=== PATIENT | female | born 1985 | race Two or more races ===

== ENCOUNTER → 2022-09-28 | Outpatient (CLI) | payer OTHER | END | disposition home or self-care (01) | LOC: PRENATAL 15:37 | PROVIDERS: ATTEND Obstetrics & Gynecology Maternal & Fetal Medicine | DX: O35.3XX0 Maternal care for (suspected) damage to fetus from viral disease in mother, not applicable or unspecified (principal); O09.529 Supervision of elderly multigravida, unspecified trimester; O28.1 Abnormal biochemical finding on antenatal screening of mother; O34.10 Maternal care for benign tumor of corpus uteri, unspecified trimester; O34.40 Maternal care for other abnormalities of cervix, unspecified trimester; O44.00 Complete placenta previa NOS or without hemorrhage, unspecified trimester; Z3A.20 20 weeks gestation of pregnancy ==

== ENCOUNTER 2022-12-21 08:42 | Outpatient (CLI) | payer OTHER | END 2022-12-21 09:55 | disposition home or self-care (01) | LOC: PRENATAL 08:42 | PROVIDERS: ATTEND Obstetrics & Gynecology Maternal & Fetal Medicine | DX: O26.849 Uterine size-date discrepancy, unspecified trimester (principal); O36.8199 Decreased fetal movements, unspecified trimester, other fetus; O09.529 Supervision of elderly multigravida, unspecified trimester; O28.1 Abnormal biochemical finding on antenatal screening of mother; O34.10 Maternal care for benign tumor of corpus uteri, unspecified trimester; O34.40 Maternal care for other abnormalities of cervix, unspecified trimester; O44.00 Complete placenta previa NOS or without hemorrhage, unspecified trimester; Z3A.32 32 weeks gestation of pregnancy ==

== ENCOUNTER 2023-01-08 10:28 | Inpatient (IN) | payer OTHER ==
[~2023-01-08] VITALS: Ht 149.9 cm; Wt 73.9 kg
[2023-01-08 11:28] LABS: HEMATOCRIT 42.4 % (36.0-45.00); MEAN CELL VOLUME 92.3 fL (80.00-100.00); MEAN CORPUSCULAR HEMOGLOBIN 30.5 pg (27.00-32.0); PLATELET COUNT 206 K/uL (150-450); RED BLOOD COUNT 4.59 M/uL (4.00-6.00); RED CELL DISTRIBUTION WIDTH 13.3 % (11.5-14.5)
[2023-01-08 11:38] LABS: URINE APPEARANCE Clear; URINE BILIRRUBIN Negative (NEGATIVE); URINE BLOOD Negative; URINE COLOR Yellow; URINE GLUCOSE Negative (NEGATIVE); URINE LEUKOCYTE Trace; URINE NITRATE Negative; URINE UROBILINOGEN 0.2 E.U./dl
[2023-01-08 11:41] LABS: URINE BACTERIA 376.6 uL (0.0-1933); URINE RBC 5.1 uL (0.0-20.8); URINE WBC 41.1 uL (0.0-23.2)
[2023-01-08] MEDS ORDERED: FOLIC ACID0.8 M1 PO (11:46)
[2023-01-08] MEDS ORDERED: PRENATAL TABLE1 EAC1 PO (11:46)
[2023-01-08] MEDS ORDERED: VAZALORE81 MG PO (11:46)
[2023-01-08 11:51] LABS: ALT/SGPT 37 U/L (12-78); AST/SGOT 29 U/L (15-37)
[2023-01-08 12:02] LABS: URINE PROTEIN 100 (NEGATIVE)
[2023-01-09 11:37] LABS: URINE PROT QUANT 24HR 29.9 MG/DL
[2023-01-09 11:38] LABS: URINE PROT QUANT 24 HR 784.88 MG/24HR (42-225)
[2023-01-10 19:25] LABS: ABG PH 7.273 (7.35-7.45); ABG pCO2 49.2 mmHg (35-45); BICARBONATE 22.2 mmol/l (23-25); SaO2 33.5 %; Tco2 23.7 mmol/l
[2023-01-10 19:28] LABS: ABG PO2 24.4 mmHg (80-100); o2 21 %
[2023-01-11 06:49] LABS: HEMATOCRIT 36.1 % (36.0-45.00); HEMOGLOBIN 12.3 g/dL (12.0-15.00); MEAN CELL VOLUME 91.9 fL (80.00-100.00); MEAN CORPUSCULAR HEMOGLOBIN 31.3 pg (27.00-32.0); MEAN CORPUSCULAR HGB CONC 34.1 g/dl (32.0-36.0); PLATELET COUNT 175 K/uL (150-450); RED BLOOD COUNT 3.93 M/uL (4.00-6.00); RED CELL DISTRIBUTION WIDTH 13.6 % (11.5-14.5)
[2023-01-12 07:07] LABS: hav igm Negative (Negative); hcv Non Reactive (Non Reactive); hep b c Negative (Negative)
== END 2023-01-13 15:52 | disposition home or self-care (01) | DRG 788 ==
LOC: LDR 10:28 → OB/GYN 10:28 → O/R 01-10 14:50 → OB/GYN 01-10 17:14 → LDR 01-10 17:44 → OB/GYN 01-11 12:05
PROVIDERS: ADMIT Obstetrics & Gynecology; ATTEND Obstetrics & Gynecology
PROC: 4A1HXCZ Monitoring of Products of Conception, Cardiac Rate, External Approach (ICD-10-PCS; 2023-01-08)
PROC: BY4FZZZ Ultrasonography of Third Trimester, Single Fetus (ICD-10-PCS; 2023-01-08)
PROC: 10D00Z1 Extraction of Products of Conception, Low, Open Approach (ICD-10-PCS; principal; 2023-01-10 15:15)
DX: O14.14 Severe pre-eclampsia complicating childbirth (principal); O60.14X0 Preterm labor third trimester with preterm delivery third trimester, not applicable or unspecified; O26.843 Uterine size-date discrepancy, third trimester; O36.8130 Decreased fetal movements, third trimester, not applicable or unspecified; Z3A.34 34 weeks gestation of pregnancy; Z37.0 Single live birth; Z20.822 Contact with and (suspected) exposure to COVID-19

== ENCOUNTER 2023-10-30 13:55 | Outpatient (CLI) | payer OTHER ==
[~2023-10-30 13:55] MED LIST: FOLIC ACID0.8 M1 PO; PRENATAL TABLE1 EAC1 PO; VAZALORE81 MG PO
== END 2023-10-30 13:56 | disposition home or self-care (01) ==
LOC: PRENATAL 13:55
PROVIDERS: ATTEND Obstetrics & Gynecology Maternal & Fetal Medicine
DX: O26.842 Uterine size-date discrepancy, second trimester (principal); O09.522 Supervision of elderly multigravida, second trimester; O34.219 Maternal care for unspecified type scar from previous cesarean delivery; O14.92 Unspecified pre-eclampsia, second trimester; Z3A.27 27 weeks gestation of pregnancy

== ENCOUNTER 2023-12-10 10:45 | Inpatient (IN) | payer OTHER ==
[~2023-12-10] VITALS: Ht 149.9 cm; Wt 74.8 kg
[2023-12-10 09:49] VITALS: BP 106/64; O2SAT 98
[2023-12-10] MEDS ORDERED: PROMETHAZINE HCL 25 MG/ML AMPUL IV ONE (11:00)
[2023-12-10] MEDS ORDERED: 0.9 % SODIUM CHLORIDE 1,000 ML IV SCH (11:00)
[2023-12-10] MEDS ORDERED: ACETAMINOPHEN 500 MG GEL..CAP PO ONE (11:00)
[2023-12-10 11:17] LABS: HEMATOCRIT 37.4 % (36.0-45.00); HEMOGLOBIN 12.9 g/dL (12.0-15.00); MEAN CORPUSCULAR HGB CONC 34.5 g/dl (32.0-36.0); PLATELET COUNT 185 K/uL (150-450); RED BLOOD COUNT 4.16 M/uL (4.00-6.00)
[2023-12-10] MEDS ORDERED: PANTOPRAZOLE SO40 MG PO (11:19)
[2023-12-10 11:25] LABS: URINE EPITHELIAL CELLS 38.4 uL (0.0-38.8); URINE RBC 76.6 uL (0.0-20.8)
[2023-12-10] MEDS ORDERED: FAMOtidine 40 MG TABLET PO NR (11:30)
[2023-12-10 11:50] LABS: PH,URINE 6.5 (5.0-8.0); URINE APPEARANCE Cloudy; URINE BILIRRUBIN Negative (NEGATIVE); URINE BLOOD Small; URINE COLOR Dark Yellow; URINE GLUCOSE Negative (NEGATIVE); URINE LEUKOCYTE Moderate; URINE NITRATE Negative; URINE PROTEIN 30 (NEGATIVE)
[2023-12-10 12:11] LABS: ALBUMIN 2.5 gm/dL (3.4-5.0); BILIRUBIN TOTAL 0.76 mg/dL (0.3-1.2); CALCIUM 8.9 mg/dL (8.5-10.1); CREATININE SERUM 0.47 mg/dL (0.55-1.02); GFR 149.94; GLOBULINA 3.8 G/DL (2.4-3.5); POTASSIUM 3.28 mEq/L (3.5-5.1); TOTAL PROTEIN 6.3 gm/dL (6.4-8.2); URINE BACTERIA > 9821.5 uL (0.0-1933); URINE CAST 0.61 uL (0.0-1.40); URINE KETONE >=160 (NEGATIVE)
[2023-12-10] MEDS ORDERED: PIPERACILLIN/TAZOBACTAM SODIUM 3.375 GM in 0.9 % SODIUM CHLORIDE 100 ML IV SCH (14:00)
[2023-12-10 15:35] VITALS: BP 104/68
[2023-12-10] MEDS ORDERED: ACETAMINOPHEN 500 MG GEL..CAP PO STA (18:07)
[2023-12-10] MEDS ORDERED: ACETAMINOPHEN 500 MG GEL..CAP PO PRN (18:15)
[2023-12-10 20:10] VITALS: BP 91/59
[2023-12-11] VITALS (7 sets, daily range): BP systolic 90–103; BP diastolic 60–69; O2SAT 99–100
[2023-12-12 01:26] VITALS: BP 100/60
[2023-12-12 10:13] VITALS: BP 106/65; O2SAT 97
== END 2023-12-12 11:15 | disposition home or self-care (01) | DRG 832 ==
LOC: OBS/DEL 10:45 → LDR 12-11 12:36 → OB/GYN 12-11 12:36
PROVIDERS: ADMIT Obstetrics & Gynecology; ATTEND Obstetrics & Gynecology
PROC: 4A1HXCZ Monitoring of Products of Conception, Cardiac Rate, External Approach (ICD-10-PCS; principal; 2023-12-11)
PROC: 8E0ZXY6 Isolation (ICD-10-PCS; 2023-12-11)
PROC: BY4FZZZ Ultrasonography of Third Trimester, Single Fetus (ICD-10-PCS; 2023-12-11)
DX: O98.513 Other viral diseases complicating pregnancy, third trimester (principal); O14.93 Unspecified pre-eclampsia, third trimester; O23.43 Unspecified infection of urinary tract in pregnancy, third trimester; B96.0 Mycoplasma pneumoniae [M. pneumoniae] as the cause of diseases classified elsewhere; O26.843 Uterine size-date discrepancy, third trimester; O36.8130 Decreased fetal movements, third trimester, not applicable or unspecified; O34.211 Maternal care for low transverse scar from previous cesarean delivery; O98.913 Unspecified maternal infectious and parasitic disease complicating pregnancy, third trimester; O34.43 Maternal care for other abnormalities of cervix, third trimester; Z3A.33 33 weeks gestation of pregnancy; Z20.822 Contact with and (suspected) exposure to COVID-19

== ENCOUNTER 2024-01-10 09:15 | Inpatient (IN) | payer OTHER ==
[~2024-01-10] VITALS: Ht 149.9 cm; Wt 3.2 kg
[~2024-01-10 09:15] MED LIST changes: +PANTOPRAZOLE SO40 MG PO
[2024-01-10 10:08] LABS: HEMATOCRIT 40.6 % (36.0-45.00); HEMOGLOBIN 13.8 g/dL (12.0-15.00); MEAN CELL VOLUME 90.7 fL (80.00-100.00); MEAN CORPUSCULAR HEMOGLOBIN 30.7 pg (27.00-32.0); MEAN CORPUSCULAR HGB CONC 33.9 g/dl (32.0-36.0); PLATELET COUNT 207 K/uL (150-450); RED BLOOD COUNT 4.48 M/uL (4.00-6.00); RED CELL DISTRIBUTION WIDTH 13.3 % (11.5-14.5)
[2024-01-10 10:29] LABS: INR < 0.93; PROTHROMBIN TIME 10.2 SECONDS (9.0-11.5)
[2024-01-10 10:50] LABS: PH,URINE 6.5 (5.0-8.0); URINE APPEARANCE Clear; URINE BILIRRUBIN Negative (NEGATIVE); URINE BLOOD Negative; URINE COLOR Yellow; URINE GLUCOSE Negative (NEGATIVE); URINE KETONE Negative (NEGATIVE); URINE LEUKOCYTE Trace; URINE NITRATE Negative; URINE PROTEIN Trace (NEGATIVE)
[2024-01-10 10:51] LABS: ALBUMIN 2.9 gm/dL (3.4-5.0); BILIRUBIN TOTAL 0.4 mg/dL (0.3-1.2); CALCIUM 9.6 mg/dL (8.5-10.1); CREATININE SERUM 0.52 mg/dL (0.55-1.02); GFR 133.43; GLOBULINA 3.7 G/DL (2.4-3.5); POTASSIUM 4.23 mEq/L (3.5-5.1); TOTAL PROTEIN 6.6 gm/dL (6.4-8.2)
[2024-01-10 10:54] LABS: URINE BACTERIA 25.1 uL (0.0-1933); URINE EPITHELIAL CELLS 9.8 uL (0.0-38.8); URINE RBC 3.9 uL (0.0-20.8); URINE WBC 5.7 uL (0.0-23.2)
[2024-01-15 08:42] VITALS: BP 120/84
[2024-01-15] MEDS ORDERED: MEPERIDINE HCL/PF 50 MG/ML VIAL IM PRN (15:30)
[2024-01-15] MEDS ORDERED: PROMETHAZINE HCL 50 MG/ML AMPUL IM PRN (15:30)
[2024-01-15] MEDS ORDERED: MORPHINE SULFATE 4 MG/ML VIAL IV ONE (17:05)
[2024-01-15] MEDS ORDERED: MORPHINE SULFATE 2 MG/ML CARTRIDGE IV ONE (17:35)
[2024-01-15 19:46] VITALS: BP 140/85
[2024-01-15] MEDS ORDERED: LABETALOL HCL 200 MG TABLET PO SCH (21:00)
[2024-01-15 22:07] LABS: HEMATOCRIT 37.6 % (36.0-45.00); HEMOGLOBIN 12.7 g/dL (12.0-15.00); MEAN CELL VOLUME 90.2 fL (80.00-100.00); MEAN CORPUSCULAR HEMOGLOBIN 30.5 pg (27.00-32.0); MEAN CORPUSCULAR HGB CONC 33.8 g/dl (32.0-36.0); PLATELET COUNT 203 K/uL (150-450); RED BLOOD COUNT 4.17 M/uL (4.00-6.00)
[2024-01-16] VITALS: BP 140/88
[2024-01-16 07:43] VITALS: BP 147/83
[2024-01-16] MEDS ORDERED: OxyCODONE HCL/APAP UD (PERCOCET) PO PRN (08:00)
[2024-01-16] MEDS ORDERED: SIMETHICONE 125 MG CAPSULE PO SCH (09:00)
[2024-01-16] MEDS ORDERED: PNV,CALCIUM 72/IRON/FOLIC ACID 1 TAB TABLET PO SCH (09:00)
[2024-01-16] MEDS ORDERED: DOCUSATE SODIUM 100MG CAP PO SCH (09:00)
[2024-01-16 12:42] VITALS: BP 105/69; BP 121/80
[2024-01-16 15:49] VITALS: BP 132/73
[2024-01-16 20:05] VITALS: BP 119/74
[2024-01-17] VITALS: BP 121/75
[2024-01-17 08:00] VITALS: BP 112/75
[2024-01-17 16:00] VITALS: BP 127/85
[2024-01-17 20:00] VITALS: BP 134/87
[2024-01-18 00:51] VITALS: BP 106/70
[2024-01-18 08:22] VITALS: BP 129/88
== END 2024-01-18 16:19 | disposition home or self-care (01) | DRG 785 ==
LOC: OB/GYN 01-15 07:00 → O/R 01-15 08:31 → OB/GYN 01-15 09:02
PROVIDERS: ADMIT Obstetrics & Gynecology; ATTEND Obstetrics & Gynecology
PROC: 0UB60ZZ Excision of Left Fallopian Tube, Open Approach (ICD-10-PCS; 2024-01-15)
PROC: 4A1HXCZ Monitoring of Products of Conception, Cardiac Rate, External Approach (ICD-10-PCS; 2024-01-15)
PROC: 10D00Z1 Extraction of Products of Conception, Low, Open Approach (ICD-10-PCS; principal; 2024-01-15 07:00)
DX: O34.211 Maternal care for low transverse scar from previous cesarean delivery (principal); Z3A.39 39 weeks gestation of pregnancy; Z30.2 Encounter for sterilization; Z20.822 Contact with and (suspected) exposure to COVID-19; Z37.0 Single live birth